=== PATIENT | female | born 1995 | race Caucasian/White ===

== ENCOUNTER 2019-05-29 03:56 | Emergency (ER) | payer OTHER ==
[~2019-05-29] VITALS: Ht 157.5 cm; Wt 49.9 kg
--- NOTE | 2019-05-29 04:00 | NUR ---
ED Nurse Note: Pt BIBA from [employer] station. Pt currently having a panic attack, hyperventilating, crying and inconsolable. BHR 123, RR 36. Pt is A&Ox4, no longer in custody
[2019-05-29 04:05] VITALS: BP 123/65
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
[2019-05-29] MEDS ORDERED: LORazepam 1mg tab ORAL ONE (04:15)
--- NOTE | 2019-05-29 04:21 | NUR ---
ED Nurse Note: PO ativan not given, pt unable to calm down enough to take pill, agreed to start IV. MD crowe
[2019-05-29] MEDS ORDERED: LORazepam Inj 2mg/ml 1ml IV ONE (04:30)
[2019-05-29 05:00] VITALS: BP 123/65
--- NOTE | 2019-05-29 05:13 | NUR ---
ER DISCHARGE NOTE: Patient is cleared to be discharged per ERMD, pt is aox4, on room air, with stable vital signs. pt was given dc and prescription instructions, pt was able to verbalize understanding, pt id band and iv site removed without complications. pt is able to ambulate with steady gait. pt took all belongings. PD arrived upon discharge to question pt outside of ED, pt with friend and calm. VSS
== END 2019-05-29 05:00 | disposition home or self-care (01) ==
LOC: EDBD 03:56 → EMR 04:18
DX: F41.0 Panic disorder [episodic paroxysmal anxiety] (principal); F41.9 Anxiety disorder, unspecified
CPT/HCPCS: 96374; 96375; 99284; J2405